=== PATIENT | female | born 1955 | race Caucasian/White ===

== ENCOUNTER 2022-08-05 10:10 | Outpatient (CLI) | payer MEDICARE, MEDICAID, SELFPAY ==
--- NOTE | 2022-08-05 10:00 | USCV_ITS ---
Meagan Naye Age: 66 Gender: F : 1955 Exam Date: 08/05/2022 10:27 Ordering Phys: Veronica Carbajal DO Technologist: Giles Holder Exam Location: [facility] [place]_ Indication: swollen painful leg PROCEDURES: Venous duplex imaging was performed in only the left lower extremity. The following venous structures were evaluated: common femoral vein, profunda vein, proximal portion of the greater saphenous vein, superficial femoral vein, and the popliteal vein. In addition, the posterior tibial and peroneal trunk were evaluated. Serial compression, augmentation maneuvers, and spectral Doppler flow evaluation were performed. FINDINGS: Normal 2-D Doppler and augmentation and compressibility throughout the lower extremity venous structures. Additional imaging through the proximal calf veins also reveals no thrombus. Limited evaluation of the greater saphenous vein is patent with no thrombus. CONCLUSIONS No DVT left lower extremity. Dr. Jenny Blank DO (Electronically Signed) Final Date: 05 August 2022 11:00 S
== END 2022-08-05 10:11 | disposition home or self-care (01) ==
LOC: RAD 10:12
PROVIDERS: PCP Family Medicine; Visit Provider Emergency Medicine
DX: I82.409 Acute embolism and thrombosis of unspecified deep veins of unspecified lower extremity (principal)
CPT/HCPCS: 93971

== ENCOUNTER 2023-08-26 12:53 | Outpatient (CLI) | payer MEDICARE, MEDICAID, SELFPAY ==
--- NOTE | 2023-08-26 12:57 | USR_ITS ---
PROCEDURE INFORMATION: Exam: US Soft Tissue Head and Neck, Thyroid Exam date and time: 08/26/2023 1:10 PM Age: 67 years old Clinical indication: Abnormal findings; Abnormal thyroid lab test; Additional info: Hyperthyroidism TECHNIQUE: Imaging protocol: Real-time ultrasound scan of the neck with image documentation. Exam focused on the thyroid. COMPARISON: No relevant prior studies available. FINDINGS: The following thyroid size measurements are obtained: Right thyroid lobe: 4.6 x 2.0 x 2.4 cm. Left thyroid lobe: 3.5 x 1.3 x 1.5 cm. Isthmus: 0.2 cm AP. The background thyroid echotexture is heterogeneous. Nodule # 1 Image: Series 1, image 10 Location: Right lobe lower pole Size: 2.50 AP x 2.54 Transverse x 3.0 cm Craniocaudal Features: Mixed cystic and solid but predominantly solid. Echotexture is heterogeneous but predominantly hypoechoic. Suspected minimal microcalcifications. ACR TI-RADS Level: TR 4, FNA recommended. Nodule # 2 Image: Series 1, image 35 Location: Midportion left lobe. Size: 0.68 AP x 0.98 Transverse x 1.1 cm Craniocaudal Features: Solid, heterogeneous, hypoechoic ACR TI-RADS Level: TR 4, follow-up recommended in this size range. Limited assessment of right and left herb chains performed, no enlarged nodes reported. US/US thyroid [id number] IMPRESSION: 1. Complex 3 cm mass in the right lobe for which FNA is recommended by ACR TI-RADS guidelines. 2. Follow-up recommended for left lobe nodule.
== END 2023-08-26 12:54 | disposition home or self-care (01) ==
LOC: RAD 12:53
PROVIDERS: PCP Family Medicine; Visit Provider Nurse Practitioner Family
DX: E05.90 Thyrotoxicosis, unspecified without thyrotoxic crisis or storm (principal); E07.9 Disorder of thyroid, unspecified
CPT/HCPCS: 76536

== ENCOUNTER → 2023-10-20 10:00 | Outpatient (BNVA) | payer MEDICARE, MEDICAID, SELFPAY | PROVIDERS: PCP Family Medicine; Referring Provider Nurse Practitioner Family; Visit Provider Internal Medicine | DX: E04.1 Nontoxic single thyroid nodule (principal); E05.90 Thyrotoxicosis, unspecified without thyrotoxic crisis or storm; F41.9 Anxiety disorder, unspecified; E04.2 Nontoxic multinodular goiter | CPT/HCPCS: 83516; 84439; 84443; 84480; 86800; 99204 ==

== ENCOUNTER 2023-11-26 09:33 | Outpatient (CLI) | payer MEDICARE, MEDICAID, SELFPAY ==
--- NOTE | 2023-11-26 10:00 | NM_ITS ---
WS: [id number] NUCLEAR MEDICINE 24 HOUR I-123 THYROID UPTAKE INDICATION: Thyroid nodule TECHNIQUE: I-123 24 HOUR THYROID UPTAKE WITH PLANAR IMAGING. 120 UCI TAB 123 COMPARISON: Ultrasound 08/26/2023 FINDINGS: Markedly increased focal uptake in the RIGHT thyroid corresponding to the large RIGHT mid a nd inferior thyroid nodule seen on the prior ultrasound. Very little uptake within the LEFT thyroid g land likely due to intense RIGHT thyroid uptake. Near complete suppression of activity within the LEF T thyroid lobe and the remainder of the RIGHT thyroid. No uptake is visualized in the salivary glands due to decreased background activity. Calculated 24-hour uptake 27.68% NORMAL 24H THRYOID UPTAKE 8-35% IMPRESSION: 1. Intense focal uptake in the RIGHT mid and lower thyroid corresponding to the RIGHT thyroid nodule suspicious for toxic thyroid adenoma. Recommend further evaluation of this nodule with FNA as recomm ended by ultrasound criteria. Recommend correlation for hyperthyroidism. 2. Near complete suppression of radiotracer activity in the LEFT thyroid lobe and remainder of the R IGHT thyroid lobe presumably due to decreased TSH levels. 3. No visualized salivary gland uptake due to decreased background activity
== END 2023-11-26 09:34 | disposition home or self-care (01) ==
PROVIDERS: PCP Family Medicine; Visit Provider Internal Medicine
DX: E04.1 Nontoxic single thyroid nodule (principal)
CPT/HCPCS: 78014; 83516; 84439; 84443; 84480; 86800; 99204; A9516

== ENCOUNTER 2023-12-07 08:56 | Outpatient (CLI) | payer MEDICARE, MEDICAID, SELFPAY ==
[2023-12-07 09:53] LABS: Free T4 Free Thyroxine 1.31 ng/dL (0.82-1.77); Thyroid Stimulating Hormone 0.37 uIU/mL (0.27-4.20)
[2023-12-08 11:30] LABS: T3 Total 165 ng/dL (76-181)
== END 2023-12-07 08:57 | disposition home or self-care (01) ==
LOC: LAB 08:57
PROVIDERS: PCP Family Medicine; Visit Provider Internal Medicine
DX: E04.1 Nontoxic single thyroid nodule (principal); E05.90 Thyrotoxicosis, unspecified without thyrotoxic crisis or storm; E04.2 Nontoxic multinodular goiter; F41.9 Anxiety disorder, unspecified
CPT/HCPCS: 36415; 84439; 84443; 84480; 99214

== ENCOUNTER → 2023-12-17 10:55 | Outpatient (BNVA) | payer MEDICARE, MEDICAID, SELFPAY | PROVIDERS: PCP Family Medicine; Visit Provider Otolaryngology | DX: E04.2 Nontoxic multinodular goiter (principal) | CPT/HCPCS: 99204; 99205 ==

== ENCOUNTER 2023-12-30 09:43 | Outpatient (CLI) | payer MEDICARE, MEDICAID, SELFPAY ==
--- NOTE | 2023-12-30 11:45 | US_ITS ---
WS: [id number] ULTRASOUND-GUIDED RIGHT THYROID NODULE FNA HISTORY: Large complex RIGHT thyroid nodule. Procedure, risks, and complications were explained to the patient. Consent has been obtained. Comparison: 08/26/2023 The skin is cleansed with ChloraPrep and anesthetized with 1% buffered lidocaine. FNA performed with 25 gauge needles. cardiac cath technologist is present to fix slides. Patient was extremely nervous during this examination had difficult time remaining still. Only 3 fine-needle aspirations were perfo rmed due to patient's discomfort. IMPRESSION: Uncomplicated FNA of a RIGHT thyroid nodule. Final pathology results pending.
== END 2023-12-30 09:44 | disposition home or self-care (01) ==
LOC: RAD 09:44
PROVIDERS: PCP Family Medicine; Visit Provider Otolaryngology
DX: E04.1 Nontoxic single thyroid nodule (principal)
CPT/HCPCS: 10005; 88173

== ENCOUNTER → 2024-02-05 10:14 | Outpatient (BNVA) | payer MEDICARE, MEDICAID, SELFPAY | PROVIDERS: PCP Family Medicine; Referring Provider Internal Medicine; Visit Provider Internal Medicine | DX: E05.90 Thyrotoxicosis, unspecified without thyrotoxic crisis or storm (principal); E04.2 Nontoxic multinodular goiter; E04.1 Nontoxic single thyroid nodule | CPT/HCPCS: 84439; 84443; 84480 ==

== ENCOUNTER → 2024-04-07 10:54 | Outpatient (BNVA) | payer MEDICARE, MEDICAID, SELFPAY | PROVIDERS: PCP Family Medicine; Visit Provider Internal Medicine | DX: E05.90 Thyrotoxicosis, unspecified without thyrotoxic crisis or storm (principal); E04.2 Nontoxic multinodular goiter; F41.9 Anxiety disorder, unspecified; E04.1 Nontoxic single thyroid nodule | CPT/HCPCS: 99214 ==

== ENCOUNTER → 2024-06-27 11:41 | Outpatient (BNVA) | payer MEDICARE, MEDICAID, SELFPAY | PROVIDERS: PCP Family Medicine; Referring Provider Nurse Practitioner Family; Visit Provider Internal Medicine Cardiovascular Disease | DX: Q24.8 Other specified congenital malformations of heart (principal); R07.9 Chest pain, unspecified; I49.8 Other specified cardiac arrhythmias; R94.31 Abnormal electrocardiogram [ECG] [EKG]; I21.9 Acute myocardial infarction, unspecified | CPT/HCPCS: 93005; 99204 ==

== ENCOUNTER 2024-09-06 10:06 | Emergency (ER) | payer MEDICARE, MEDICAID, SELFPAY ==
--- NOTE | 2024-09-06 10:10 | XRR_ITS ---
PROCEDURE INFORMATION: Exam: XR Right Wrist Exam date and time: 09/06/2024 11:13 AM Age: 68 years old Clinical indication: Injury or trauma; Fall; Blunt trauma (contusions or hematomas); Wrist; Right; Additional info: Pain/injury TECHNIQUE: Imaging protocol: Radiologic exam of the right wrist. Views: 3 or more views. COMPARISON: No relevant prior studies available. FINDINGS: Bones/joints: Distal radial ulnar joint is normal. Carpus without fracture and normal anatomic configuration. Metacarpals and visualized phalanges without fracture or dislocation. No periarticular erosive changes and/or soft tissue calcifications. Tiny corticated ossific densities dorsum of the wrist of 3 mm in 2 mm. Likely prior triquetral fracture. Correlate regarding tenderness. Mild soft tissue swelling about the above. Moderate degenerative changes at the first carpometacarpal joint. Soft tissues: See Bones/joints finding. XR/XR wrist RT min 3V* [id number] IMPRESSION: 1. Tiny corticated ossific densities dorsum of the wrist of 3 mm in 2 mm. Likely prior triquetral fracture. Correlate regarding tenderness. Mild soft tissue swelling about the above. 2. Moderate degenerative changes at the first carpometacarpal joint.
[2024-09-06 10:17] VITALS: BP 153/87; PULSE 88; RESP 16; TEMP 36.5; O2SAT 97; BMI 26.1
--- NOTE | 2024-09-06 11:48 | W.ED.UPPEXIN ---
HPI - Extremity Injury (Upper) General: Chief Complaint: Extremity Injury, Upper Stated Complaint: Right wrisk injury, swollen and in pain Time Seen by Provider: 09/06/24 10:10 Source: patient Mode of arrival: ambulatory Limitations: no limitations History of Present Illness: Patient is a 68-year-old female presents to ED today with a complaint of right wrist pain following a fall this morning. She states she accidentally tripped and fell in her bathroom and injured her right wrist. No other injury sustained during the fall. Denies striking her head or LOC. No neck or back pain. MD complaint: injury to: right and wrist Onset (ago): hour(s) Other Extremity Injury: Right: wrist Other injuries: none Place: home Severity: moderate Relieving factors: immobilization Exacerbating factors: movement of extremity Context: fall Associated symptoms: Reports no associated symptoms; Denies neck pain Related Data Home Medications Medication Instructions Recorded Confirmed albuterol sulfate 90 mcg/actuation 2 puff inhalation Q6H PRN 10/20/23 09/06/24 aerosol inhaler Shortness Of Breath Or Wheezing pantoprazole 40 mg tablet,delayed 40 mg PO DAILY 10/20/23 09/06/24 release sitagliptin phosphate 50 mg tablet 50 mg PO DAILY 06/27/24 09/06/24 (Januvia) atorvastatin 40 mg tablet 40 mg PO DAILY 09/06/24 09/06/24 ropinirole 2 mg tablet 2 mg PO DAILY 09/06/24 09/06/24 Previous Rx's Medication Instructions Recorded citalopram 40 mg tablet 40 mg PO DAILY #30 tabs 06/02/22 methimazole 5 mg tablet 7.5 mg (1.5 x 5 mg) PO DAILY #112 04/07/24 tabs Allergies Allergy/AdvReac Type Severity Reaction Status Date / Time gabapentin Allergy ADR-Halluci Verified 09/06/24 10:20 toby Review of Systems Musc: Reports: joint pain (R wrist) and joint swelling (R wrist); Denies: neck pain, back pain, joint redness or joint warmth Neuro: Denies: headache(s) PFSH ED PFSH: Medical History Thyroid dysfunction Family history of cholecystectomy Thyroid nodule Surgical History Hx of hysterectomy Hx of knee surgery Hx of carpal tunnel repair Social History Smoking and tobacco/nicotine status: current every day tobacco/nicotine user cigarettes Packs smoked per day: 2 Years cigarettes smoked: 45 Second hand smoke exposure: No Alcohol intake: current Alcohol intake frequency: 0-2 Drinks per Day Alcohol type: hard liquor Substance/Drug Use: never Physical Exam Const: COMMON NORMALS: no acute distress, average body habitus, no limitations, healthy appearing, alert and well nourished GENERAL APPEARANCE: cooperative HENMT: COMMON NORMALS: normocephalic and atraumatic HEAD & SCALP: normal to inspection, normocephalic and atraumatic FACE & SINUS: normal facial exam Neck/C-Spine: COMMON NORMALS: full ROM CERVICAL SPINE: No Cervical spine tenderness Back/Pelvis: COMMON NORMALS: thoracic and lumbar spine normal to inspection Extremity: COMMON NORMALS: capillary refill normal GENERAL: Yes normal exam except as noted RIGHT UPPER EXTREMITY: Yes wrist (mild edema noted to R wrist and proximal hand) Right wrist: Yes palpation (significant tenderness throughout wrist and proximal hand), Yes ROM (limited due to pain) and Yes neurovascular exam (normal) Neuro: COMMON NORMALS: moves all extremities, no focal motor deficits and no sensory deficits noted SENSORIUM/ORIENTATION: Yes alert Course Vital Signs: Vital signs: Vital Signs Temperature 97.7 F 09/06/24 10:17 Pulse Rate 88 09/06/24 10:17 Respiratory Rate 16 09/06/24 10:17 Blood Pressure 153/87 09/06/24 10:17 Pulse Oximetry 97 09/06/24 10:17 Oxygen Delivery Me thod Room Air 09/06/24 10:17 MDM - Extremity Injury (Upper) Medical Decision Making On XR imaging on her lateral view question triquetral fracture although fragment does appear fairly well corticated. She is significantly tender here however. Denies previous hand fracture. Will splint and have her follow up with orthopedics. Medical Records I reviewed the patient's medical records. Lab Data Radiology Impressions Wrist X-Ray 09/06/24 10:10 IMPRESSION: 1. Tiny corticated ossific densities dorsum of the wrist of 3 mm in 2 mm. Likely prior triquetral fracture. Correlate regarding tenderness. Mild soft tissue swelling about the above. 2. Moderate degenerative changes at the first carpometacarpal joint. XR interpretation done by ED provider, pending radiology final review Discharge Plan Discharge Patient Disposition: Home Clinical Impression: Injury of right wrist Qualifiers: Encounter type: initial encounter Qualified Code(s): S69.91XA - Unspecified injury of right wrist, hand and finger(s), initial encounter Condition: Stable Prescriptions: No Action pantoprazole 40 mg tablet,delayed release (DR/EC) 40 mg PO DAILY albuterol sulfate 90 mcg/actuation HFA aerosol inhaler 2 puff inhalation Q6H PRN (Reason: Shortness Of Breath Or Wheezing) citalopram 40 mg tablet 40 mg PO DAILY Qty: 30 0RF methimazole 5 mg tablet 7.5 mg PO DAILY Qty: 112 1RF Januvia 50 mg tablet 50 mg PO DAILY atorvastatin 40 mg tablet 40 mg PO DAILY ropinirole 2 mg tablet 2 mg PO DAILY Discharge Orders: Discharge ED (Routine); Ordered 09/06/24 Ordered By: Gisela Huertas Referrals: Kaye Cordon DO [Primary Care Provider] - Activity Restrictions/Additional Instructions: As we discussed, question acute versus chronic fracture found in your hand on your x-ray. You are significantly tender here on exam therefore we will place you in a splint and have you follow-up with orthopedics. You may ice and elevate your wrist and hand to help with swelling. You may use [id number] analgesics such as Tylenol and ibuprofen to help with pain. Coding Level of Care Code ED [employer] Developer for [place]
[2024-09-06 13:14] VITALS: BP 153/87; PULSE 81; O2SAT 96
[2024-09-06 13:26] VITALS: BP 153/87; PULSE 81; O2SAT 96
--- NOTE | 2024-09-08 07:40 | DCPLANNER ---
messaged ortho for er f/u
== END 2024-09-06 13:30 | disposition home or self-care (01) ==
PROVIDERS: Emergency Provider Physician Assistant; PCP Family Medicine
DX: S69.91XA Unspecified injury of right wrist, hand and finger(s), initial encounter (principal); F17.210 Nicotine dependence, cigarettes, uncomplicated; W01.0XXA Fall on same level from slipping, tripping and stumbling without subsequent striking against object, initial encounter
CPT/HCPCS: 73110; 99283

== ENCOUNTER → 2024-09-27 13:02 | Outpatient (BNVA) | payer MEDICARE, MEDICAID, SELFPAY | PROVIDERS: PCP Family Medicine; Referring Provider Physician Assistant; Visit Provider Student in an Organized Health Care Education/Training Program | DX: S62.111A Displaced fracture of triquetrum [cuneiform] bone, right wrist, initial encounter for closed fracture; S69.81XA Other specified injuries of right wrist, hand and finger(s), initial encounter; X58.XXXA Exposure to other specified factors, initial encounter; Z46.89 Encounter for fitting and adjustment of other specified devices; S52.591D Other fractures of lower end of right radius, subsequent encounter for closed fracture with routine healing; X58.XXXD Exposure to other specified factors, subsequent encounter | CPT/HCPCS: 73110 ==

== ENCOUNTER 2024-09-27 15:10 | Outpatient (CLI) | payer MEDICARE, MEDICAID, SELFPAY | END 2024-09-27 15:11 | disposition home or self-care (01) | LOC: SPT 15:11 | PROVIDERS: PCP Family Medicine; Visit Provider Student in an Organized Health Care Education/Training Program | DX: Z46.89 Encounter for fitting and adjustment of other specified devices (principal); S52.591D Other fractures of lower end of right radius, subsequent encounter for closed fracture with routine healing; X58.XXXD Exposure to other specified factors, subsequent encounter | CPT/HCPCS: 97760; L3982 ==

== ENCOUNTER → 2024-09-29 13:14 | Outpatient (BNVA) | payer MEDICARE, MEDICAID, SELFPAY | PROVIDERS: PCP Family Medicine; Visit Provider Student in an Organized Health Care Education/Training Program | DX: M17.0 Bilateral primary osteoarthritis of knee | CPT/HCPCS: 73560; 73565; 99214 ==

== ENCOUNTER 2024-10-25 10:45 | Outpatient (CLI) | payer MEDICARE, MEDICAID, SELFPAY ==
--- NOTE | 2024-10-25 10:50 | MR_ITS ---
WS: [id number] MRI RIGHT WRIST WITHOUT CONTRAST. COMPARISON: Radiographs 09/06/2024 and 09/27/2024 Multiplanar, multisequence imaging is performed without contrast. Marrow edema in the distal radius extending through the metaphysis and into the articular surface along with a nondisplaced slightly complex fracture. Fracture does extend to the articular surface. Marrow edema extends into the radial styloid. Distal ulna is intact. There is a tiny amount of fluid in the distal radial ulnar joint. Small amount of fluid extending around the distal dorsal radius interposed between the extensor retinaculum. Subtle increased T2 signal in the proximal scaphoid. Increased T2 signal in the scapholunate ligament. No fracture or marrow edema in the triquetrum. Carpal rows are slightly narrowed. MR/MR wrist RT wo con* [id number] IMPRESSION: 1. Marrow edema within nondisplaced complex fracture distal radius. Fracture e xtends into the metaphysis and intra-articular. 2. No triquetral fracture. 3. No distal ulnar fracture. 4. Very subtle increased T2 signal in the proximal scaphoid. This could be a h ealing contusion injury or prior cyst. 5. Scapholunate edema and increased T2 signal. Suspicious for at least a parti al tear.
== END 2024-10-25 10:46 | disposition home or self-care (01) ==
LOC: RAD 10:45
PROVIDERS: PCP Family Medicine; Visit Provider Student in an Organized Health Care Education/Training Program
DX: S52.501A Unspecified fracture of the lower end of right radius, initial encounter for closed fracture (principal); X58.XXXA Exposure to other specified factors, initial encounter
CPT/HCPCS: 73110; 73221; 99214

== ENCOUNTER → 2024-11-09 12:47 | Outpatient (BNVA) | payer MEDICARE, MEDICAID, SELFPAY | PROVIDERS: PCP Family Medicine; Visit Provider Student in an Organized Health Care Education/Training Program | DX: M17.0 Bilateral primary osteoarthritis of knee (principal) | CPT/HCPCS: 20610; 99213; J3301; J7318 ==

== ENCOUNTER 2024-11-10 21:20 | Emergency (ER) | payer MEDICARE, MEDICAID, SELFPAY ==
[2024-11-10 21:21] VITALS: BP 124/77; PULSE 103; RESP 18; TEMP 36.7; O2SAT 92; BMI 25.8
--- NOTE | 2024-11-10 21:28 | XRR_ITS ---
PROCEDURE INFORMATION: Exam: XR Abdomen Exam date and time: 11/10/2024 9:30 PM Age: 69 years old Clinical indication: Abdominal pain; Generalized; Additional info: Abd pain TECHNIQUE: Imaging protocol: Radiologic exam of the abdomen. Views: Frontal supine view of the abdomen. 1 View. COMPARISON: CR XR chest 1V [id number] 03/26/2024 10:46 PM FINDINGS: Gastrointestinal tract: Normal. No bowel dilation. Bones/joints: Unremarkable. XR/XR abdomen 1V* [id number] IMPRESSION: No acute findings.
[2024-11-10] MEDS: ondansetron 2 mg/ML SDV 2 mL 8 MG IVP (21:41)
[2024-11-10] MEDS: sodium chloride 0.9% 1,000 ML 999 ML IV (21:41)
--- NOTE | 2024-11-10 21:51 | W.ED.NAVMDI ---
HPI - Nausea/Vomiting/Diarrhea General: Chief complaint: Nausea/Vomiting/Diarrhea Stated complaint: N/V x 1 week Time Seen by Provider: 11/10/24 21:21 History of Present Illness: 69-year-old female with a history of hypothyroidism who presents to the emergency room with nausea vomiting and diarrhea for several days now. She said she started out with nausea vomiting and diarrhea. The diarrhea has since resolved but she is continue to not build to keep anything down. No focal abdominal pain. No fevers. No chest pain. No altered mental status. Related Data Home Medications ?Medication ?Instructions ?Recorded ?Confirmed albuterol sulfate 90 mcg/actuation 2 puff inhalation Q6H PRN 10/20/23 11/09/24 aerosol inhaler Shortness Of Breath Or Wheezing pantoprazole 40 mg tablet,delayed 40 mg PO DAILY 10/20/23 11/09/24 release sitagliptin phosphate 50 mg tablet 50 mg PO DAILY 06/27/24 11/09/24 (Januvia) atorvastatin 40 mg tablet 40 mg PO DAILY 09/06/24 11/09/24 ropinirole 2 mg tablet 2 mg PO DAILY 09/06/24 11/09/24 Previous Rx's ?Medication ?Instructions ?Recorded citalopram 40 mg tablet 40 mg PO DAILY #30 tabs 06/02/22 methimazole 5 mg tablet 7.5 mg (1.5 x 5 mg) PO DAILY #112 04/07/24 tabs right wrist cock up fast form brace #1 ea 09/27/24 ondansetron 8 mg disintegrating 8 mg PO Q6H #14 tabs 11/10/24 tablet promethazine 25 mg rectal 25 mg LA Q6H PRN nausea and 11/10/24 suppository vomiting #12 ea Allergies Allergy/AdvReac Type Severity Reaction Status Date / Time metformin Allergy Intermediate ADR-Dry Verified 11/10/24 21:23 Mucus Membranes gabapentin Allergy ADR-Halluci Verified 11/10/24 21:23 nating Review of Systems Narrative: Constitutional symptoms: Negative except as documented in HPI. Skin symptoms: Negative except as documented in HPI. Eye symptoms: Negative except as documented in HPI. ENMT symptoms: Negative except as documented in HPI. Respiratory symptoms: Negative except as documented in HPI. Cardiovascular symptoms: Negative except as documented in HPI. Gastrointestinal symptoms: Negative except as documented in HPI. Genitourinary symptoms: Negative except as documented in HPI. Musculoskeletal symptoms: Negative except as documented in HPI. Neurologic symptoms: Negative except as documented in HPI. Psychiatric symptoms: Negative except as documented in HPI. Endocrine symptoms: Negative except as documented in HPI. PFSH ED PFSH: Medical History Thyroid dysfunction Family history of cholecystectomy Thyroid nodule Surgical History Hx of hysterectomy Hx of knee surgery Hx of carpal tunnel repair Social History Smoking and tobacco/nicotine status: current every day tobacco/nicotine user cigarettes Packs smoked per day: 2 Years cigarettes smoked: 45 Second hand smoke exposure: No Alcohol intake: current Alcohol intake frequency: 0-2 Drinks per Day Alcohol type: hard liquor Substance/Drug Use: never Marital status: Physical Exam Narrative: EXAM NARRATIVE: General: Alert, no acute distress. Skin: Warm, dry. Head: Normocephalic, atraumatic. Neck: Supple, trachea midline. Eye: Extraocular movements are intact. Ears, nose, mouth and throat: Dry oral mucosa Cardiovascular: Regular, Normal peripheral perfusion. Respiratory: Lungs are clear to auscultation, respirations are non-labored, breath sounds are equal, Symmetrical chest wall expansion. Gastrointestinal: Soft, Nontender, Non distended Musculoskeletal: Normal ROM, no deformity. Neurological: Alert and oriented, No focal neurological deficit observed. Psychiatric: Cooperative, appropriate mood & affect. Course Vital Signs: Vital signs: Vital Signs Temperature 98.1 F 11/10/24 21:21 Pulse Rate 103 H 11/10/24 21:21 Respiratory Rate 18 11/10/24 21:21 Blood Pressure 124/77 11/10/24 21:21 Pulse Oximetry 92 11/10/24 21:21 Oxygen Delivery Me thod Room Air 11/10/24 21:21 MDM - Nausea/Vomiting/Diarrhea Medical Decision Making Medical decision making: Differential diagnosis for this patient with nausea and vomiting including but not limited to and based on the above HPI, review of systems and physical exam: Urinary tract infection. Appendicitis. Cholecystis. colitis. small bowel obstruction. crohn's flare. pancreatitis. gastritis. peptic ulcer. cyclic vomiting. Viral illness. Influenza. COVID. Orders placed to evaluate differential diagnosis based on the above differential, HPI and physical exam Lab Review: Laboratory results were reviewed and interpreted by myself the emergency room physician. Mild leukocytosis. No anemia. No renal failure. Urine is positive for urinary tract infection. Flu COVID and RSV are negative. CT of the abdomen pelvis without and with contrast: Mild edema about the pancreatic head. However patient does not have an elevated lipase and no tenderness in that area. Gastric wall thickening. This is likely related to gastroenteritis which fits clinical picture. Concerning cystic structures seen and a contrasted CT was recommended and this was done. Still concerning for a mass that may or may not be benign. These are in both kidneys. Recommend follow-up with urology and possibly an MRI. I discussed these findings with the patient and she will see her PCP and/or go to urology in the very near future. This was reviewed and interpreted by myself the emergency room physician. I also reviewed the radiology report. I reviewed the patient's medical record. Reexamination: Feeling quite bit better. Tolerating p.o. No increased work of breathing. No altered mental status. Assessment and plan: Gastroenteritis UTI Nausea and vomiting Dehydration Kidney masses ?IV Zofran and normal saline bolus. - Discharged home - Discussed findings and plan with patient. Answered any questions. - All laboratory values were reviewed and interpreted personally by myself, the ER physician - All imaging was reviewed and interpreted personally by myself, the ER physician. - Evaluation and treatment of this problem were appropriate in the emergency setting Lab Data 11/10/24 21:45 11/10/24 21:45 Radiology Impressions Abdomen X-Ray 11/10/24 21:28 IMPRESSION: No acute findings. Abdomen/Pelvis CT 11/11/24 00:03 IMPRESSION: 1. Left kidney lower pole 5.3 cm heterogeneous mass with solid appearing components concerning for primary renal malignancy, urological consultation advised. MRI could further characterize this is clinically indicated 2. Right kidney lower pole 16 mm somewhat exophytic solid-appearing lesion, series 6, image 56, potentially concerning for renal malignancy, MRI could further evaluate this. 3. Multiple additional bilateral renal cysts, 2 seen in the left kidney interpolar region measures 2.6 cm in size, series 3, image 29 and 1.7 cm in size, series 3, image 34, correlation with ultrasound nonemergently to determine solid versus cystic nature advised. 4. Prominent fluid in the stomach and small bowel may reflect a gastroenteritis. 5. Minimal edema again seen near the pancreatic head/uncinate process, please correlate for pancreatitis. 6. Diverticulosis without diverticulitis. 7. Small hiatal hernia. 8. Coronary artery atherosclerotic calcifications. 9. Bibasilar atelectasis. 10. Emphysematous changes. 11. Periportal edema likely related to hydration status. 12. Cholecystectomy. Laboratory Results WBC 12.28 10^3/uL (3.29-11.43) H 11/10/24 21:45 RBC 4.85 10^6/uL (3.85-5.65) 11/10/24 21:45 Hgb 14.70 g/dL (11.27-16.99) 11/10/24 21:45 Hct 45.2 % (36-47) 11/10/24 21:45 MCV 93.2 fl (85-98) 11/10/24 21:45 MCH 30.3 pg (27-33) 11/10/24 21:45 MCHC 32.5 g/dL (30-55) 11/10/24 21:45 RDW 12.4 % (12.1-15.1) 11/10/24 21:45 Plt Count 256 10^3/cmm (157-399) 11/10/24 21:45 MPV 12.5 fL (7.4-10.4) H 11/10/24 21:45 Neut % (Auto) 79.9 % 11/10/24 21:45 Lymph % (Auto) 13.7 % 11/10/24 21:45 Storey % (Auto) 5.1 % 11/10/24 21:45 Eos % (Auto) 0.5 % 11/10/24 21:45 Baso % (Auto) 0.4 % 11/10/24 21:45 Neut # (Auto) 9.81 10^3/uL (1.8-7.7) H 11/10/24 21:45 Lymph # (Auto) 1.7 10^3/uL (0.8-4.8) 11/10/24 21:45 Storey # (Auto) 0.6 10^3/uL (0.2-0.9) 11/10/24 21:45 Eos # (Auto) 0.1 10^3/uL (0.0-0.8) 11/10/24 21:45 Baso # (Auto) 0.1 10^3/uL (0.0-0.1) 11/10/24 21:45 Nucleated RBC % (auto) 0 % 11/10/24 21:45 Nucleated RBCs # 0.0 /100WBC 11/10/24 21:45 Sodium 136 mmol/L (136-145) 11/10/24 21:45 Potassium 3.5 mmol/L (3.5-5.1) 11/10/24 21:45 Chloride 100 mmol/L (98-107) 11/10/24 21:45 Carbon Dioxide 22 mmol/L (22-29) 11/10/24 21:45 Anion Gap 17.5 (5-19) 11/10/24 21:45 BUN 13 mg/dL (8-23) 11/10/24 21:45 Creatinine 0.8 mg/dL (0.5-0.9) 11/10/24 21:45 GFR Calculation 71.5 mL/min (90-130) L 11/10/24 21:45 Glucose 169 mg/dL (65-115) H 11/10/24 21:45 Calculated Osmolality 286 mOsm/kg (285-295) 11/10/24 21:45 Lactic Acid 1.5 mmol/L (0.5-2.2) 11/10/24 21:45 Calcium 10.9 mg/dL (8.5-10.5) H 11/10/24 21:45 Total Bilirubin 0.5 mg/dL (0.15-1.2) 11/10/24 21:45 AST 30 U/L (0-32) 11/10/24 21:45 ALT 27 U/L (0-33) 11/10/24 21:45 Alkaline Phosphatase 313 U/L (35-105) H 11/10/24 21:45 C-Reactive Protein 3.8 mg/L (0.0-4.9) 11/10/24 21:45 Total Protein 7.9 g/dL (6.6-8.7) 11/10/24 21:45 Albumin 4.1 g/dL (3.5-5.2) 11/10/24 21:45 Globulin 3.8 g/dL (1.3-4.6) 11/10/24 21:45 Lipase 36 U/L (13-60) 11/10/24 21:45 Urine Color Yellow (Yellow) 11/10/24 22:50 Urine Appearance Turbid (CLEAR) A 11/10/24 22:50 Urine pH 5.5 (5-7) 11/10/24 22:50 Ur Specific [place] 1.015 (1.005-1.030) 11/10/24 22:50 Urine Protein 1+ (Negative) A 11/10/24 22:50 Urine Glucose (UA) Negative (Normal) 11/10/24 22:50 Urine Ketones 1+ (Negative) H 11/10/24 22:50 Urine Blood Negative (Negative) 11/10/24 22:50 Urine Nitrate Negative (Negative) 11/10/24 22:50 Urine Bilirubin Negative (Negative) 11/10/24 22:50 Urine Urobilinogen 1.0 mg/dL (Negative) 11/10/24 22:50 Ur Leukocyte Esterase 3+ (Negative) A 11/10/24 22:50 Urine RBC 0-4 /hpf (0-2) H 11/10/24 22:50 Urine WBC 15-25 /hpf (0-5) H 11/10/24 22:50 Ur Squamous Epith Cells 15-25 /hpf (0-5) H 11/10/24 22:50 Amorphous Sediment Not Reportable 11/10/24 22:50 Urine Bacteria Trace /hpf (NONE) 11/10/24 22:50 Urine Mucus 2+ /hpf 11/10/24 22:50 Influenza A (PCR) Negative (Negative) 11/10/24 21:45 Influenza Type B (PCR) Negative (Negative) 11/10/24 21:45 RSV (PCR) Negative (Negative) 11/10/24 21:45 SARS-CoV-2 (PCR) Negative (Negative) 11/10/24 21:45 All radiology interpretation(s) finalized by discharge Discharge Plan Discharge Patient Disposition: Home Clinical Impression: Urinary tract infection, Gastroenteritis, Dehydration, Renal mass Condition: Stable Prescriptions: New promethazine 25 mg suppository 25 mg LA Q6H PRN (Reason: nausea and vomiting) Qty: 12 0RF ondansetron 8 mg tablet,disintegrating 8 mg PO Q6H Qty: 14 0RF Rx Instructions: Take 1/2-1 tab every 6 hours as needed for nausea and vomiting No Action pantoprazole 40 mg tablet,delayed release (DR/EC) 40 mg PO DAILY albuterol sulfate 90 mcg/actuation HFA aerosol inhaler 2 puff inhalation Q6H PRN (Reason: Shortness Of Breath Or Wheezing) citalopram 40 mg tablet 40 mg PO DAILY Qty: 30 0RF methimazole 5 mg tablet 7.5 mg PO DAILY Qty: 112 1RF Januvia 50 mg tablet 50 mg PO DAILY (DME) right wrist cock up fast form brace See Rx Instructions .Route .MEDSUPPLY Qty: 1 0RF Rx Instructions: As directed atorvastatin 40 mg tablet 40 mg PO DAILY ropinirole 2 mg tablet 2 mg PO DAILY Discharge Orders: Discharge ED (Routine); Ordered 11/10/24 Ordered By: Elizabeth England Referrals: Mello Pulliam [Referring] - (Please follow-up with Dr. Pulliam or the urologist of your choosing concerning the findings in your kidneys. You may want to follow-up with your primary care provider first and have them refer you but this needs done soon.) Kaye Cordon, [Primary Care Provider] - Discharge Diet: Advance as tolerated Discharge Activity: Increase activity as tolerated Patient Instructions: Dehydration (ED), Gastroenteritis (ED), Acute Nausea and Vomiting (ED), Opioid Safety, Pain Management Activity Restrictions/Additional Instructions: Please be sure to follow with your primary and/or urology in the next week or 2 concerning masses seen on your kidneys. Thank you for choosing [facility] for your healthcare needs today. Please realize this is an emergency room and that we are providing you with a medical screening exam and this may not be complete and all inclusive of all the testing and or work up that you may need to determine your ailment or severity of your illness. You have been screened and evaluated and felt safe for discharge. Health conditions do change or evolve sometimes and as such it is important that you follow up with your Primary Doctor to be re checked, 3-5 days is a general good time frame for follow up. You are always welcome to return to the ED for re assessment if your symptoms are worsening or you have new concerns Print Language: Arabic Coding Level of Care Code ED Plumbing Technician for Chg Fwd
[2024-11-10 21:55] LABS: Basophils # 0.1 10^3/uL (0.0-0.1); Basophils % 0.4 %; Eosinophils # 0.1 10^3/uL (0.0-0.8); Eosinophils % 0.5 %; Hematocrit 45.2 % (36-47); Lymphocytes # 1.7 10^3/uL (0.8-4.8); Lymphocytes % 13.7 %; Mean Corpuscular HGB Conc 32.5 g/dL (30-55); Mean Corpuscular Hemoglobin 30.3 pg (27-33); Mean Corpuscular Volume 93.2 fl (85-98); Mean Platelet Volume 12.5 fL (7.4-10.4); Monocytes # 0.6 10^3/uL (0.2-0.9); Monocytes % 5.1 %; Neutrophils # 9.81 10^3/uL (1.8-7.7); Neutrophils % 79.9 %; Nucleated Red Blood Cells % 0 %; Platelet Count 256 10^3/cmm (157-399); Red Blood Count 4.85 10^6/uL (3.85-5.65); Red Cell Distribution Width 12.4 % (12.1-15.1); White Blood Count 12.28 10^3/uL (3.29-11.43)
[2024-11-10 22:13] LABS: Alanine Aminotransferase 27 U/L (0-33); Albumin Level 4.1 g/dL (3.5-5.2); Alkaline Phosphatase 313 U/L (35-105); Anion Gap 17.5 (5-19); Aspartate Amino Transferase 30 U/L (0-32); Blood Urea Nitrogen 13 mg/dL (8-23); C Reactive Protein 3.8 mg/L (0.0-4.9); Calcium 10.9 mg/dL (8.5-10.5); Carbon Dioxide 22 mmol/L (22-29); Chloride 100 mmol/L (98-107); Creatinine Clr Calc Pharmacy 69.6016; Globulin 3.8 g/dL (1.3-4.6); Glomerular Filtration Rate 71.5 mL/min (90-130); Glucose 169 mg/dL (65-115); Lipase 36 U/L (13-60); Osmolality Calculated 286 mOsm/kg (285-295); Potassium 3.5 mmol/L (3.5-5.1); Sodium 136 mmol/L (136-145); Total Bilirubin 0.5 mg/dL (0.15-1.2); Total Protein 7.9 g/dL (6.6-8.7)
[2024-11-10 22:29] LABS: Influenza A NEGATIVE (Negative); Influenza B NEGATIVE (Negative); Respiratory Syncytial Virus Ce NEGATIVE (Negative); SARS-CoV-2 PCR NEGATIVE (Negative)
--- NOTE | 2024-11-10 22:29 | CTR_ITS ---
PROCEDURE INFORMATION: Exam: CT Abdomen And Pelvis Without Contrast Exam date and time: 11/10/2024 10:38 PM Age: 69 years old Clinical indication: Bloating and vomiting TECHNIQUE: Imaging protocol: Computed tomography of the abdomen and pelvis without contrast. Radiation optimization: All CT scans at this facility use at least one of these dose optimization techniques: automated exposure control; mA and/or kV adjustment per patient size (includes targeted exams where dose is matched to clinical indication); or iterative reconstruction. COMPARISON: CR (ABDOMEN, ) 11/10/2024 9:30 PM RADIATION DOSE METRICS: Total DLP (mGy-cm): 702.98 FINDINGS: Lungs: Bibasilar atelectasis. Coronary arteries: Coronary artery atherosclerotic calcifications. Diaphragm: Small hiatal hernia. Liver: Normal. No mass. Gallbladder and biliary ducts: Cholecystectomy. Pancreas: Mild edema about the pancreatic head, please correlate for pancreatitis. Spleen: Normal. No splenomegaly. Adrenal glands: Normal. No mass. Kidneys and ureters: Bilateral renal cysts along with a left kidney lower pole 5.2 cm somewhat hyperdense masslike lesion along the to left kidney hyperdense lesions measuring 2.3 and 2.1 cm. Further evaluation with a contrast infused CT and/or MRI advised to assess for possible mass lesions, potentially concerning for malignancy. Stomach and bowel: Gastric wall thickening with prominent fluid in the small bowel, please correlate for a gastroenteritis. Diverticulosis without diverticulitis. Appendix: No evidence of appendicitis. Intraperitoneal space: Unremarkable. No free air. No significant fluid collection. Vasculature: Unremarkable. No abdominal aortic aneurysm. Lymph nodes: Unremarkable. No enlarged lymph nodes. Urinary bladder: Unremarkable as visualized. Reproductive: Unremarkable as visualized. Bones/joints: Unremarkable. No acute fracture. Soft tissues: Unremarkable. CT/CT abdomen pelvis wo con [id number] IMPRESSION: 1. Mild edema about the pancreatic head, please correlate for pancreatitis. 2. Gastric wall thickening with prominent fluid in the small bowel, please correlate for a gastroenteritis. 3. Coronary artery atherosclerotic calcifications. 4. Bibasilar atelectasis. 5. Cholecystectomy. 6. Small hiatal hernia. 7. Bilateral renal cysts along with a left kidney lower pole 5.2 cm somewhat hyperdense masslike lesion along the to left kidney hyperdense lesions measuring 2.3 and 2.1 cm. Further evaluation with a contrast infused CT and/or MRI advised to assess for possible mass lesions, potentially concerning for malignancy. 8. Diverticulosis without diverticulitis.
[2024-11-10 22:53] LABS: Lactic Sepsis W/Reflex 1.5 mmol/L (0.5-2.2)
[2024-11-10 23:05] LABS: Bilirubin Urine Negative (Negative); Blood Urine Negative (Negative); Glucose Urine UA Negative (Normal); Ketones Urine 1+ (Negative); Leukocyte Esterase Urine 3+ (Negative); Nitrate Urine Negative (Negative); Protein Urine 1+ (Negative); Specific Gravity, Urine 1.015 (1.005-1.030); Urine Appearance Turbid (CLEAR); Urine Color Yellow (Yellow); pH Urine 5.5 (5-7)
[2024-11-10 23:11] LABS: Add Urine Culture? No; Bacteria Urine TRACE /hpf; Mucus Urine 2+ /hpf; RBC Urine 0-4 /hpf (0-2); Squamous Epithelial Cell Urine 15-25 /hpf (0-5); WBC Urine 15-25 /hpf (0-5)
[2024-11-11] MEDS: cefTRIAXone 1,000 mg SDV 1000 MG IVP (00:02)
--- NOTE | 2024-11-11 00:03 | CTR_ITS ---
PROCEDURE INFORMATION: Exam: CT Abdomen And Pelvis With Contrast Exam date and time: 11/11/2024 12:17 AM Age: 69 years old Clinical indication: Abnormal findings; Abnormal radiologic finding of the abdomen; Radiologic exam and body structure: Non con CT abd/pel; Additional info: Abnormal noncontrast CT, concern for kidneys. TECHNIQUE: Imaging protocol: Computed tomography of the abdomen and pelvis with contrast. Radiation optimization: All CT scans at this facility use at least one of these dose optimization techniques: automated exposure control; mA and/or kV adjustment per patient size (includes targeted exams where dose is matched to clinical indication); or iterative reconstruction. Contrast material: OMNI 350; Contrast volume: 100 ml; Contrast route: INTRAVENOUS (IV); COMPARISON: CT abdomen pelvis wo con [id number] 11/10/2024 10:38 PM RADIATION DOSE METRICS: Total DLP (mGy-cm): 705.2 FINDINGS: Lungs: Bibasilar atelectasis. Emphysematous changes. Coronary arteries: Coronary artery atherosclerotic calcifications. Diaphragm: Small hiatal hernia. Liver: Periportal edema likely related to hydration status. Gallbladder and biliary ducts: Cholecystectomy. Pancreas: Minimal edema again seen near the pancreatic head/uncinate process, please correlate for pancreatitis. Spleen: Normal. No splenomegaly. Adrenal glands: Normal. No mass. Kidneys and ureters: Left kidney lower pole 5.3 cm heterogeneous mass with solid appearing components concerning for primary renal malignancy, urological consultation advised. MRI could further characterize this is clinically indicated. Right kidney lower pole 16 mm somewhat exophytic solid-appearing lesion, series 6, image 56, potentially concerning for renal malignancy, MRI could further evaluate this. Multiple additional bilateral renal cysts, 2 seen in the left kidney interpolar region measures 2.6 cm in size, series 3, image 29 and 1.7 cm in size, series 3, image 34, correlation with ultrasound nonemergently to determine solid versus cystic nature advised. Stomach and bowel: Prominent fluid in the stomach and small bowel may reflect a gastroenteritis. Diverticulosis without diverticulitis. Appendix: No evidence of appendicitis. Intraperitoneal space: Unremarkable. No free air. No significant fluid collection. Vasculature: Unremarkable. No abdominal aortic aneurysm. Lymph nodes: Unremarkable. No enlarged lymph nodes. Urinary bladder: Unremarkable as visualized. Reproductive: Unremarkable as visualized. Bones/joints: Unremarkable. No acute fracture. Soft tissues: Unremarkable. CT/CT abdomen pelvis w con* [id number] IMPRESSION: 1. Left kidney lower pole 5.3 cm heterogeneous mass with solid appearing components concerning for primary renal malignancy, urological consultation advised. MRI could further characterize this is clinically indicated 2. Right kidney lower pole 16 mm somewhat exophytic solid-appearing lesion, series 6, image 56, potentially concerning for renal malignancy, MRI could further evaluate this. 3. Multiple additional bilateral renal cysts, 2 seen in the left kidney interpolar region measures 2.6 cm in size, series 3, image 29 and 1.7 cm in size, series 3, image 34, correlation with ultrasound nonemergently to determine solid versus cystic nature advised. 4. Prominent fluid in the stomach and small bowel may reflect a gastroenteritis. 5. Minimal edema again seen near the pancreatic head/uncinate process, please correlate for pancreatitis. 6. Diverticulosis without diverticulitis. 7. Small hiatal hernia. 8. Coronary artery atherosclerotic calcifications. 9. Bibasilar atelectasis. 10. Emphysematous changes. 11. Periportal edema likely related to hydration status. 12. Cholecystectomy.
[2024-11-11] MEDS: iohexol 350 mg/mL 500 mL Btl (per mL) IV (00:23)
[2024-11-11 01:34] VITALS: BP 140/85; PULSE 104; O2SAT 93
[2024-11-11 01:35] VITALS: BP 140/85; PULSE 104; O2SAT 93
== END 2024-11-11 01:40 | disposition home or self-care (01) ==
PROVIDERS: Emergency Provider Emergency Medicine; PCP Family Medicine
DX: N39.0 Urinary tract infection, site not specified (principal); K52.9 Noninfective gastroenteritis and colitis, unspecified; E86.0 Dehydration; N28.89 Other specified disorders of kidney and ureter; Z11.52 Encounter for screening for COVID-19; F17.210 Nicotine dependence, cigarettes, uncomplicated
CPT/HCPCS: 74018; 74176; 74177; 80053; 81001; 83605; 83690; 85025; 86140; 87637; 96361; 96374; 96375; 99285; J0696; J2405; J7030

== ENCOUNTER 2024-11-12 06:30 | Outpatient (RCR) | payer MEDICARE, MEDICAID, SELFPAY | END 2024-12-12 23:59 | disposition home or self-care (01) | LOC: MPT 06:30 | PROVIDERS: PCP Family Medicine; Visit Provider Student in an Organized Health Care Education/Training Program | DX: S52.501D Unspecified fracture of the lower end of right radius, subsequent encounter for closed fracture with routine healing (principal); X58.XXXD Exposure to other specified factors, subsequent encounter; E05.90 Thyrotoxicosis, unspecified without thyrotoxic crisis or storm; F41.9 Anxiety disorder, unspecified; E04.2 Nontoxic multinodular goiter; E04.1 Nontoxic single thyroid nodule | CPT/HCPCS: 97110; 97161; 99214 ==

== ENCOUNTER → 2024-11-29 09:44 | Outpatient (BNVA) | payer MEDICARE, MEDICAID, SELFPAY | PROVIDERS: PCP Family Medicine; Visit Provider Student in an Organized Health Care Education/Training Program | DX: S52.501A Unspecified fracture of the lower end of right radius, initial encounter for closed fracture (principal); X58.XXXA Exposure to other specified factors, initial encounter | CPT/HCPCS: 73110 ==

== ENCOUNTER 2024-11-29 10:34 | Outpatient (CLI) | payer MEDICARE, MEDICAID, SELFPAY | END 2024-11-29 10:35 | disposition home or self-care (01) | LOC: SPT 10:35 | PROVIDERS: PCP Family Medicine; Visit Provider Student in an Organized Health Care Education/Training Program | DX: Z46.89 Encounter for fitting and adjustment of other specified devices (principal); S52.501D Unspecified fracture of the lower end of right radius, subsequent encounter for closed fracture with routine healing; X58.XXXD Exposure to other specified factors, subsequent encounter | CPT/HCPCS: 97760; L3908 ==

== ENCOUNTER → 2024-12-07 11:38 | Outpatient (BNVA) | payer MEDICARE, MEDICAID, SELFPAY | PROVIDERS: PCP Family Medicine; Visit Provider Internal Medicine | DX: E05.90 Thyrotoxicosis, unspecified without thyrotoxic crisis or storm (principal); F41.9 Anxiety disorder, unspecified; E04.2 Nontoxic multinodular goiter; E04.1 Nontoxic single thyroid nodule | CPT/HCPCS: 36415; 84439; 84443; 84480 ==

== ENCOUNTER 2024-12-13 05:00 | Outpatient (RCR) | payer MEDICARE, MEDICAID, SELFPAY | END 2025-01-11 23:59 | disposition home or self-care (01) | LOC: MPT 05:00 | PROVIDERS: Visit Provider Student in an Organized Health Care Education/Training Program | DX: S52.501D Unspecified fracture of the lower end of right radius, subsequent encounter for closed fracture with routine healing (principal); X58.XXXD Exposure to other specified factors, subsequent encounter | CPT/HCPCS: 97110 ==

== ENCOUNTER 2025-01-12 05:00 | Outpatient (RCR) | payer MEDICARE, MEDICAID, SELFPAY | END 2025-01-25 12:58 | disposition home or self-care (01) | LOC: MPT 05:00 | PROVIDERS: PCP Family Medicine; Visit Provider Student in an Organized Health Care Education/Training Program | DX: M25.531 Pain in right wrist (principal) | CPT/HCPCS: 97110 ==

== ENCOUNTER → 2025-01-16 14:05 | Outpatient (BNVA) | payer MEDICARE, MEDICAID, SELFPAY | PROVIDERS: PCP Family Medicine; Visit Provider Internal Medicine Cardiovascular Disease | DX: R55 Syncope and collapse (principal); E11.9 Type 2 diabetes mellitus without complications; E78.5 Hyperlipidemia, unspecified; F17.210 Nicotine dependence, cigarettes, uncomplicated | CPT/HCPCS: 99214 ==

== ENCOUNTER → 2025-01-24 09:48 | Outpatient (BNVA) | payer MEDICARE, MEDICAID, SELFPAY | PROVIDERS: PCP Family Medicine; Visit Provider Student in an Organized Health Care Education/Training Program | DX: S52.501A Unspecified fracture of the lower end of right radius, initial encounter for closed fracture (principal); X58.XXXA Exposure to other specified factors, initial encounter | CPT/HCPCS: 73110; 99213 ==

== ENCOUNTER 2025-02-07 09:06 | Outpatient (CLI) | payer OTHER, MEDICAID, SELFPAY ==
--- NOTE | 2025-02-07 10:00 | US_ITS ---
WS: [id number] THYROID ULTRASOUND HISTORY: Thyroid mass. COMPARISON: 08/26/2023 Right lobe: 3.0 cm x 2.5 cm x 5.6 cm (w x ap x l). Volume: 20.5 cm3. Enlarged heterogeneous RIGHT thyroid There is a large cystic and solid mass encompassing a large portion of the LEFT thyroid lobe. This mass is undergone a prior biopsy. There is increased vascularity within the mass. Mass measures 3.0 x 2.6 x 4.3 cm. Similar in size to the prior study. There is increased vascularity. Left lobe: 1.6 cm x 1.2 cm x 5.5 cm (w x ap x l). Volume: 5.4 cm3. Normal size and echotexture. No significant or dominant nodules are present. Isthmus: 0.3 cm. US/US thyroid [id number] IMPRESSION: 1. Large RIGHT thyroid mass has undergone a prior biopsy. No increase in size of this mass. There is mild increased vascularity. 2. No LEFT thyroid nodule.
== END 2025-02-07 09:07 | disposition home or self-care (01) ==
LOC: RAD 09:08
PROVIDERS: PCP Family Medicine; Visit Provider Internal Medicine
DX: E05.90 Thyrotoxicosis, unspecified without thyrotoxic crisis or storm (principal); F41.9 Anxiety disorder, unspecified; E04.1 Nontoxic single thyroid nodule
CPT/HCPCS: 76536

== ENCOUNTER → 2025-03-03 11:29 | Outpatient (BNVA) | payer MEDICARE, MEDICAID, SELFPAY | PROVIDERS: PCP Family Medicine; Referring Provider Internal Medicine; Visit Provider Internal Medicine | DX: E05.90 Thyrotoxicosis, unspecified without thyrotoxic crisis or storm (principal); E04.2 Nontoxic multinodular goiter; F41.9 Anxiety disorder, unspecified; E04.1 Nontoxic single thyroid nodule | CPT/HCPCS: 84439; 84443; 84480 ==